=== PATIENT | male | born 1970 | race Two or more races ===

== ENCOUNTER 2017-01-27 13:18 | Inpatient (IN) | payer SELFPAY ==
[~2017-01-27] VITALS: Ht 180.3 cm; Wt 129.3 kg
[2017-01-27 14:05] LABS: Basophils # (auto) 0.1 uL; Basophils % (auto) 0.4 % (0.0-2.0); CONDITION Y; Eosinophils # (auto) 0.4 uL; Eosinophils % (auto) 2.9 % (0.0-7.0); Hematocrit 44.8 % (41.0-53.0); Hemoglobin 15.3 g/dL (13.5-17.5); Lymphocytes # (auto) 2.1 uL; Mean Corpuscular Hemoglobin 29.9 pg (28.0-32.0); Mean Corpuscular Hgb Conc. 34.1 g/dL (32.0-36.0); Mean Corpuscular Volume 87.9 fL (80.0-100.0); Mean Platelet Volume 8.8 fL (7.4-10.4); Monocytes # (auto) 0.5 uL; Monocytes % (auto) 3.6 % (0.0-12.0); Neutrophils # (auto) 10.3 uL; Neutrophils % (auto) 77.1 % (37.0-80.0); Platelet Count (auto) 300 10^3/uL (140-450); Red Cell Distribution Width 13.6 % (11.6-16.0); White Blood Cell 13.4 10^3/uL (4.4-10.8)
[2017-01-27 14:39] LABS: Albumin 3.8 g/dL (3.4-5.0); Alkaline Phosphatase 72 U/L (45-117); Anion Gap 8 (5-15); Aspartate Aminotransferase 35 U/L (15-37); BUN/Creatinine Ratio 9.8; Bilirubin, Total 0.4 mg/dL (0.2-1.0); Blood Urea Nitrogen 11 mg/dL (7-18); Calcium 9.2 mg/dL (8.5-10.1); Carbon Dioxide 25 mmol/L (21-32); Chloride 104 mmol/L (98-107); GFR African American 91 mL/min; GFR Non-African American 75 mL/min; Glucose 206 mg/dL (74-106); Potassium 3.7 mmol/L (3.5-5.1); Sodium 137 mmol/L (136-145); Total Protein 8.4 g/dL (6.4-8.2)
[2017-01-27] MEDS ORDERED: SODIUM CHLORIDE 0.9% 1,000 ML IV ONE (20:15)
[2017-01-27] MEDS ORDERED: LORazepam 2MG/ML-1ML VIAL IV ONE (21:15)
[2017-01-27 21:40] LABS: Urine Bilirubin Negative (Negative); Urine Blood Negative /uL (Negative); Urine Color Yellow (Yellow); Urine Glucose Normal (Normal); Urine Ketone Negative (Negative); Urine Mucus FEW (None Seen); Urine Nitrite Negative (Negative); Urine RBC <1 /hpf (0 - 3); Urine Squamous Epithelial Cell FEW /hpf (<5); Urine Urobilinogen Normal (Negative)
[2017-01-28] VITALS (10 sets, daily range): BP systolic 128–149; BP diastolic 73–94
[2017-01-28] MEDS ORDERED: ONDANSETRON HCL 4 MG/2 ML VIAL IV PRN
[2017-01-28] MEDS ORDERED: ASPirin 81 mg TAB PO ONE
[2017-01-28] MEDS ORDERED: HYDROcodone-ACET 5/325MG TAB PO PRN
[2017-01-28] MEDS ORDERED: LORazepam 0.5 MG TAB PO PRN
[2017-01-28 01:14] LABS: Cholesterol 259 mg/dL (< 200); HDL Cholesterol 43 mg/dL (40-59); LDL Cholesterol 185 mg/dL (< 100); Triglycerides 243 mg/dL (< 150)
[2017-01-28] MEDS: FAMOTIDINE 20 MG TAB PO SCH ×2 (09:19→21:08)
[2017-01-28] MEDS: ENOXAPARIN SOD 40 MG/0.4 ML SYRINGE SC SCH (09:19)
[2017-01-28] MEDS ORDERED: ASPirin 81 mg TAB PO SCH (10:00)
[2017-01-28] MEDS: ACETAMINOPHEN 325 MG TAB PO PRN (14:27)
[2017-01-28] MEDS ORDERED: LORazepam 2MG/ML-1ML VIAL IV PRN ×2 (17:45)
[2017-01-28] MEDS: ATORVASTATIN 20 MG TAB PO SCH (21:08)
[2017-01-28] MEDS ORDERED: ATORVASTATIN 20 MG TAB PO SCH (22:00)
[2017-01-29 05:00] VITALS: BP 116/71
[2017-01-29] MEDS: ACETAMINOPHEN 325 MG TAB PO PRN (08:22)
[2017-01-29 09:00] VITALS: BP 99/57
[2017-01-29] MEDS: FAMOTIDINE 20 MG TAB PO SCH ×2 (10:00→21:17)
[2017-01-29] MEDS: ENOXAPARIN SOD 40 MG/0.4 ML SYRINGE SC SCH (10:00)
[2017-01-29 13:06] VITALS: BP 142/87
[2017-01-29 15:23] LABS: Basophils # (auto) 0 uL; Basophils % (auto) 0.3 % (0.0-2.0); CONDITION Y; Eosinophils # (auto) 0.5 uL; Eosinophils % (auto) 3.7 % (0.0-7.0); Hematocrit 43.3 % (41.0-53.0); Hemoglobin 14.7 g/dL (13.5-17.5); Lymphocytes # (auto) 2.8 uL; Lymphocytes % (auto) 19.8 % (10.0-50.0); Mean Corpuscular Hemoglobin 29.9 pg (28.0-32.0); Mean Corpuscular Hgb Conc. 33.9 g/dL (32.0-36.0); Mean Platelet Volume 8.6 fL (7.4-10.4); Monocytes # (auto) 0.5 uL; Monocytes % (auto) 3.6 % (0.0-12.0); Neutrophils # (auto) 10.2 uL; Neutrophils % (auto) 72.6 % (37.0-80.0); Platelet Count (auto) 284 10^3/uL (140-450); Red Cell Distribution Width 13.7 % (11.6-16.0)
[2017-01-29 17:23] VITALS: BP 123/69
[2017-01-29 20:00] VITALS: BP 131/85
[2017-01-29] MEDS: ATORVASTATIN 20 MG TAB PO SCH (21:17)
[2017-01-29 22:00] VITALS: BP 131/85
[2017-01-30 05:00] VITALS: BP 130/75
[2017-01-30 09:00] VITALS: BP 134/79
[2017-01-30] MEDS: FAMOTIDINE 20 MG TAB PO SCH ×2 (09:35→21:13)
[2017-01-30] MEDS: ASPirin 81 mg TAB PO SCH (09:36)
[2017-01-30] MEDS: ENOXAPARIN SOD 40 MG/0.4 ML SYRINGE SC SCH (09:45)
[2017-01-30 13:00] VITALS: BP 134/84
[2017-01-30 17:00] VITALS: BP 126/78
[2017-01-30 19:39] LABS: Basophils # (auto) 0.1 uL; Basophils % (auto) 0.3 % (0.0-2.0); CONDITION Y; Eosinophils # (auto) 0.6 uL; Eosinophils % (auto) 3.6 % (0.0-7.0); Hematocrit 42.8 % (41.0-53.0); Hemoglobin 14.5 g/dL (13.5-17.5); Lymphocytes # (auto) 3.2 uL; Lymphocytes % (auto) 19.1 % (10.0-50.0); Mean Corpuscular Hemoglobin 29.7 pg (28.0-32.0); Mean Corpuscular Volume 87.5 fL (80.0-100.0); Mean Platelet Volume 8.6 fL (7.4-10.4); Monocytes # (auto) 0.7 uL; Monocytes % (auto) 4.3 % (0.0-12.0); Neutrophils # (auto) 12.2 uL; Neutrophils % (auto) 72.7 % (37.0-80.0); Platelet Count (auto) 306 10^3/uL (140-450); Red Cell Distribution Width 13.7 % (11.6-16.0); White Blood Cell 16.9 10^3/uL (4.4-10.8)
[2017-01-30 20:00] VITALS: BP 136/78
[2017-01-30] MEDS ORDERED: LEVOFLOXACIN 500MG 100 ML IV SCH (21:00)
[2017-01-30] MEDS: ATORVASTATIN 20 MG TAB PO SCH (21:12)
[2017-01-30 22:00] VITALS: BP 136/78
[2017-01-31 04:47] VITALS: BP 117/77
[2017-01-31 06:17] LABS: Basophils # (auto) 0.1 uL; Basophils % (auto) 0.4 % (0.0-2.0); CONDITION Y; DEFINITIVE SEE PRINTOUT; Eosinophils # (auto) 0.8 uL; Eosinophils % (auto) 4.6 % (0.0-7.0); Hematocrit 43.1 % (41.0-53.0); Hemoglobin 14.7 g/dL (13.5-17.5); Lymphocytes # (auto) 3.7 uL; Lymphocytes % (auto) 21.9 % (10.0-50.0); Mean Corpuscular Hemoglobin 30.2 pg (28.0-32.0); Mean Corpuscular Hgb Conc. 34.1 g/dL (32.0-36.0); Mean Corpuscular Volume 88.5 fL (80.0-100.0); Mean Platelet Volume 8.5 fL (7.4-10.4); Monocytes # (auto) 0.9 uL; Neutrophils # (auto) 11.5 uL; Neutrophils % (auto) 68.1 % (37.0-80.0); Platelet Count (auto) 311 10^3/uL (140-450); Red Cell Distribution Width 13.2 % (11.6-16.0); White Blood Cell 16.9 10^3/uL (4.4-10.8)
[2017-01-31 06:34] LABS: Albumin 3.5 g/dL (3.4-5.0); BUN/Creatinine Ratio 10.8; Potassium 4.7 mmol/L (3.5-5.1)
[2017-01-31 06:37] LABS: Bilirubin, Total 0.5 mg/dL (0.2-1.0); Total Protein 7.8 g/dL (6.4-8.2)
[2017-01-31 08:00] VITALS: BP 103/72
[2017-01-31 08:42] VITALS: BP 103/72
[2017-01-31] MEDS ORDERED: ATOR20TA50 PO (09:15)
[2017-01-31] MEDS ORDERED: ASPI81CH43 PO (09:15)
[2017-01-31] MEDS: ENOXAPARIN SOD 40 MG/0.4 ML SYRINGE SC SCH (10:00)
[2017-01-31] MEDS: FAMOTIDINE 20 MG TAB PO SCH (10:34)
[2017-01-31] MEDS: ASPirin 81 mg TAB PO SCH (10:34)
[2017-01-31 13:00] VITALS: BP 111/78
[2017-01-31] MEDS ORDERED: CITA10TA59 PO (14:26)
[2017-01-31] MEDS ORDERED: LEVOFLOXACIN 500MG 100 ML IV SCH (21:00)
== END 2017-01-31 16:55 | disposition home or self-care (01) | DRG 923 ==
LOC: ER 13:18 → OVERFLOW 13:19 → CENTRAL 01-28 03:29
PROVIDERS: ADMIT Internal Medicine; ATTEND Internal Medicine
DX: T67.0XXA Heatstroke and sunstroke, initial encounter (principal); X58.XXXA Exposure to other specified factors, initial encounter; R55 Syncope and collapse; E66.01 Morbid (severe) obesity due to excess calories; I10 Essential (primary) hypertension; G44.319 Acute post-traumatic headache, not intractable; E11.9 Type 2 diabetes mellitus without complications; E78.5 Hyperlipidemia, unspecified; F41.0 Panic disorder [episodic paroxysmal anxiety]; F41.1 Generalized anxiety disorder; K04.7 Periapical abscess without sinus; Z82.3 Family history of stroke; Y99.8 Other external cause status; Y92.89 Other specified places as the place of occurrence of the external cause; Y93.89 Activity, other specified; Z83.3 Family history of diabetes mellitus; Z87.891 Personal history of nicotine dependence; Z82.61 Family history of arthritis; Z82.49 Family history of ischemic heart disease and other diseases of the circulatory system; Z68.39 Body mass index [BMI] 39.0-39.9, adult
CPT/HCPCS: 36415; 70450; 70551; 71010; 71020; 80053; 80061; 80307; 81001; 82962; 83036; 84132; 84484; 85025; 87040; 87493; 93005; 93306; 93886; 95819; J1956